=== PATIENT | female | born 1995 | race Two or more races ===

== ENCOUNTER 2021-11-22 09:15 | Emergency (ER) | payer OTHER ==
[~2021-11-22] VITALS: Ht 154.9 cm; Wt 76.4 kg
[2021-11-22] MEDS ORDERED: PARA1IUD IU (09:24)
[2021-11-22 10:55] LABS: HEMATOCRIT 44.7 % (36.0-47.0); HEMOGLOBIN 14.2 g/dl (12.0-15.5); MEAN CORPUSCULAR HEMOGLOBIN 31.1 pg (27.0-33.0); MEAN CORPUSCULAR HGB CONC 31.8 g/dl (32.0-36.5); MEAN CORPUSCULAR VOLUME 97.8 fl (80.0-96.0); PLATELET COUNT, AUTOMATED 349 10^3/uL (150-450); RED BLOOD COUNT 4.57 10^6/uL (4.00-5.40); WHITE BLOOD COUNT 9.7 10^3/uL (4.0-10.0)
[2021-11-22 11:26] LABS: BACTERIA, URINE LARGE AMOUNT; RBC, URINE 15-20 /hpf (0-3); SQUAMOUS EPITHELIAL CELL URINE SMALL AMOUNT /hpf (SMALL AMT)
[2021-11-22] MEDS ORDERED: MACR100C43 PO (11:26)
[2021-11-22 11:27] LABS: HYALINE CAST, URINE NONE SEEN /lpf (0-1)
[2021-11-22 11:37] LABS: BLOOD UREA NITROGEN 12 MG/DL (7-18); CALCIUM LEVEL 9.2 MG/DL (8.5-10.1); CARBON DIOXIDE LEVEL 32 MEQ/L (21-32); CHLORIDE LEVEL 102 MEQ/L (98-107); CREATININE FOR GFR 0.91 MG/DL (0.55-1.30); GLOMERULAR FILTRATION RATE > 60.0 (>60); GLUCOSE, FASTING 138 MG/DL (70-100); SODIUM LEVEL 136 MEQ/L (136-145)
[2021-11-22 11:49] VITALS: BP 131/78
== END 2021-11-22 11:52 | disposition home or self-care (01) ==
LOC: M ED 09:15
DX: N93.9 Abnormal uterine and vaginal bleeding, unspecified (principal); N39.0 Urinary tract infection, site not specified; Z79.3 Long term (current) use of hormonal contraceptives; Z79.899 Other long term (current) drug therapy

== ENCOUNTER → 2022-01-23 | Outpatient (REF) ==
[~2022-01-23] MED LIST: MACR100C43 PO; PARA1IUD IU
== END ==
LOC: M EMP 11:59
PROVIDERS: ATTEND Family Medicine
DX: Z20.822 Contact with and (suspected) exposure to COVID-19 (principal); Z11.52 Encounter for screening for COVID-19

== ENCOUNTER → 2022-01-24 | Outpatient (REF) ==
[2022-01-24 12:33] LABS: RSV AMPLIFICATION NEGATIVE (NEGATIVE)
== END ==
LOC: M EMP 10:38
PROVIDERS: ATTEND Family Medicine
DX: Z20.822 Contact with and (suspected) exposure to COVID-19 (principal)

== ENCOUNTER 2023-04-02 21:37 | Emergency (ER) | payer OTHER, SELFPAY ==
[~2023-04-02] VITALS: Ht 154.9 cm; Wt 79.1 kg
[2023-04-02] MEDS ORDERED: IBUPROFEN 800 MG TAB PO ONE (23:10)
[2023-04-03 03:50] VITALS: BP 148/88; TEMP 98.1; O2SAT 96
== END 2023-04-03 03:56 | disposition left against medical advice (07) ==
LOC: M ED 21:37
DX: Z53.21 Procedure and treatment not carried out due to patient leaving prior to being seen by health care provider (principal)